=== PATIENT | male | born 1950 | race Caucasian/White ===

== ENCOUNTER 2017-05-30 19:27 | Inpatient (IN) | payer OTHER, BC ==
[~2017-05-30] VITALS: Ht 182.9 cm; Wt 160.1 kg
--- NOTE | ~2017-05-30 | D ---
[facility] [place] [address] DISCHARGE SUMMARY Name: LIZZ MARCELINO Room #: 424-P [facility] IN M.R.#: [id number] Admission: 05/30/17 Attend Phys: Jeannette Brooks MD Discharge: 05/31/17 Date of : 48 Report #: [id number] THIS REPORT FOR: //name// CC: Jeannette LIN DATE OF SERVICE: 05/31/2017 HISTORY OF PRESENT ILLNESS: The patient is a 67-year-old man with history of nephrolithiasis, who came to the hospital with right flank pain. Please refer to admission H and P for details. In brief, the patient was found to have right ureteral stone. HOSPITALIZATION COURSE: The patient was hospitalized. CT of the abdomen revealed a 5-mm calculus in the right proximal ureter. The patient was seen by urologist. Different options were given. The patient has passed kidney stones before. Therefore, the patient was recommended to take fluids, continue Flomax, and have outpatient followup. Currently, the patient is asymptomatic. His pain has resolved. Per urology's recommendation, the patient will be discharged home on outpatient followup. Incidentally, CT scan of the abdomen revealed findings suggestive of cirrhosis. Liver function tests are mildly elevated. The patient denies prior history of liver disease, and he does not drink alcohol. Given the patient's obesity, nonalcoholic steatohepatitis is a consideration. The patient was informed about findings, I strongly advised to discuss this with primary care physician as soon as possible. DISCHARGE MEDICATIONS: Please refer to medication reconciliation list. In brief, the patient is started on Flomax, in addition to his regular medications. DISCHARGE DIAGNOSES: 1. Right ureteral stone, details as above. Outpatient followup. No procedure performed. 2. Liver cirrhosis, suspected based on CT scan of the abdomen. Etiology is unclear. Outpatient followup. The patient is informed about findings. 3. History of deep venous thrombosis and pulmonary embolism, on chronic anticoagulation. Therapeutic INR. 4. Diabetes mellitus type 2. 5. Dyslipidemia. 6. Morbid obesity. DISPOSITION: The patient is discharged home. FOLLOWUP PLAN: [facility] [address] [place] [address] DISCHARGE SUMMARY Name: LIZZ MARCELINO Room #: 424-P [facility] IN ..#: [id number] Admission: 05/30/17 Attend Phys: Jeannette Brooks MD Discharge: 05/31/17 Date of : 48 Report #: [id number] 1. Follow up with urologist in about 2 weeks as planned. 2. Follow up with the primary care physician in 7-10 days. <ELECTRONICALLY SIGNED> By: Jeannette Brooks MD 05/31/17 1604 [id number] Jeannette Brooks MD /nt
[2017-05-30 19:32] VITALS: BP 201/75
[2017-05-30 20:19] LABS: URINE BILIRUBIN NEGATIVE (Negative); URINE BLOOD 2+ (Negative); URINE CLARITY CLEAR; URINE COLOR YELLOW; URINE GLUCOSE-RANDOM* TRACE (Negative); URINE KETONES NEGATIVE (Negative); URINE LEUKOCYTES NEGATIVE (Negative); URINE NITRITE NEGATIVE (Negative); URINE PROTEIN (DIPSTICK) NEGATIVE (Negative); URINE SPECIFIC GRAVITY >= 1.030 (1.005-1.035)
[2017-05-30 20:37] LABS: HEMATOCRIT 35.8 % (42.0-52.0); HEMOGLOBIN 12.3 gm/dL (14.0-18.0); MCH 34.2 pg (26.0-34.0); MCHC 34.4 g/dL (28.0-37.0); MCV 99.4 fL (80.0-100.0); PLATELET COUNT 124 thou/uL (150-400); WBC 6.2 thou/uL (4.0-11.0)
[2017-05-30 20:45] LABS: URIC ACID CRYSTALS >10 Many /LPF (None Seen)
[2017-05-30 20:46] LABS: CALCIUM 8.8 mg/dL (8.5-10.1); CREATININE 1.5 mg/dL (0.7-1.3); POTASSIUM 3.4 mmol/L (3.5-5.1)
[2017-05-30 20:46] LABS: BACTERIA None Seen /HPF (None Seen); CASTS None Seen /LPF (None Seen); SQUAMOUS None Seen /LPF (0-3); URINE RBC 3-10 Few /HPF (0-2); URINE WBC None Seen /HPF (0-5)
[2017-05-30 21:46] VITALS: BP 145/66
[2017-05-30] MEDS ORDERED: METFORMIN HCL500 MG PO (22:07)
[2017-05-30] MEDS ORDERED: COUMADIN 5 MG TA5 M1 PO (22:07)
[2017-05-30] MEDS ORDERED: SIMVASTATIN40 MG PO (22:07)
[2017-05-30] MEDS ORDERED: HYDROCHLOROTH12.5 M1 PO (22:08)
[2017-05-30 22:34] VITALS: BP 140/62
[2017-05-30 22:35] VITALS: BP 164/78
[2017-05-31 01:07] LABS: INR 2.7; PROTIME 27.4 Seconds (9.3-11.4)
[2017-05-31 04:30] VITALS: BP 142/79
[2017-05-31 06:15] LABS: ALBUMIN 2.5 g/dL (3.4-5.0); DIRECT BILIRUBIN 0.3 mg/dL (<0.1-0.3); TOTAL BILIRUBIN 1.2 mg/dL (<0.1-1.0)
[2017-05-31 08:46] VITALS: BP 134/62
[2017-05-31] MEDS ORDERED: OXYCODONE HCL 55 MG PO (10:26)
[2017-05-31] MEDS ORDERED: FLOMAX0.4 MG PO (10:26)
[2017-05-31 10:52] VITALS: BP 134/62
[2017-05-31 17:12] LABS: HAV IgM AB (ANTI-HAV IgM) Negative (Negative); HEPATITIS B SURFACE AG Negative (Negative); HEPATITIS C VIRUS AB 0.1 (0.0-0.9)
== END 2017-05-31 13:16 | disposition home or self-care (01) | DRG 693 ==
LOC: ER 19:27 → 4E 20:44 → EROBS 20:44 → 4E 22:35 → ENTRNSPT 05-31 13:06 → EDTRNSPTSTS 05-31 13:09 → 4E 05-31 13:16
PROVIDERS: Emergency Medicine; Nurse Practitioner Acute Care
DX: N20.1 Calculus of ureter (principal); E43 Unspecified severe protein-calorie malnutrition; N17.9 Acute kidney failure, unspecified; Z68.42 Body mass index [BMI] 45.0-49.9, adult; K74.60 Unspecified cirrhosis of liver; E78.5 Hyperlipidemia, unspecified; E66.01 Morbid (severe) obesity due to excess calories; Z96.652 Presence of left artificial knee joint; E87.6 Hypokalemia; N18.3 Chronic kidney disease, stage 3 (moderate); E11.22 Type 2 diabetes mellitus with diabetic chronic kidney disease; I12.9 Hypertensive chronic kidney disease with stage 1 through stage 4 chronic kidney disease, or unspecified chronic kidney disease; G47.33 Obstructive sleep apnea (adult) (pediatric); Z90.49 Acquired absence of other specified parts of digestive tract; Z79.01 Long term (current) use of anticoagulants; Z86.718 Personal history of other venous thrombosis and embolism; Z86.711 Personal history of pulmonary embolism; Z82.49 Family history of ischemic heart disease and other diseases of the circulatory system; Z83.3 Family history of diabetes mellitus; Z82.3 Family history of stroke; Z79.4 Long term (current) use of insulin
CPT/HCPCS: 10183

== ENCOUNTER 2017-06-01 10:27 | Inpatient (IN) | payer OTHER, BC ==
[~2017-06-01] VITALS: Ht 182.9 cm; Wt 158.8 kg
--- NOTE | ~2017-06-01 | H ---
[facility] [place] [address] HISTORY AND PHYSICAL Name: LIZZ MARCELINO Room #: 420-P [facility] IN M.R.#: [id number] Admission: 06/01/17 Attend Phys: Ronnell August MD Discharge: 06/02/17 Date of : 48 Report #: [id number] THIS REPORT FOR: //name// CC: Ronnell LIN CHIEF COMPLAINT: Coming in for the complaints of flank pain. HISTORY OF PRESENT ILLNESS: The patient was in his usual state of health until a few days ago with complaints of flank pain, was recently discharged from [facility] yesterday after elective procedural stent placement for right ureteral stone with hydronephrosis secondary to bleeding on anticoagulation. The patient is unable to tolerate the pain with significant nausea and flank pain. Came into the ER for further evaluation. After further discussion with Urology, got readmitted. See the most recent HPI and discharge summary for further details. The patient denies any complaints of fever or chills. The patient denies any nausea or vomiting, except for severe pain. The patient denies any diarrhea or abdominal pain other than flank that radiates to the groin. The patient has mild hematuria. The patient denies any dysuria. The patient denies any lower extremity edema. REVIEW OF SYSTEMS: Negative other than HPI. PAST MEDICAL HISTORY: See EMR for further details. MEDICATIONS: See EMR for further details. PAST SURGICAL HISTORY: See EMR for further details. PHYSICAL EXAMINATION: PELVIC: Right flank tenderness. HEART: S1 and S2. NEUROLOGIC: No focal neurological deficits. LUNGS: Air entry positive bilaterally on respiratory exam. ____. The patient morbidly obese. LABORATORIES: Creatinine up to 1.6. Normal electrolytes. Renal function appears to be baseline from chronic diabetic nephropathy. Creatinine of 1.5. No prior labs available prior to 05/30, but stable from last discharge. H and H, mild drop from 12.3/35.8 to 10.8/30.8. See EMR for further details. INR of 0.6. We will trial vitamin K in the morning after repeat INR if elected for procedure. CT of the abdomen: Prior CT shows 5 mm stone in the right proximal ureter with moderate right obstructive uropathy. Nonobstructive stones also noted. No left-sided urinary calculi noted. Liver suggestive of cirrhosis with multiple portal systemic venous collaterals. There is mild stranding in the mesenteric fat with numerous small mesenteric lymph nodes, although the patient does not have any abdominal symptoms currently. [facility] [address] [place] [address] HISTORY AND PHYSICAL Name: LIZZ MARCELINO Room #: 420-P [facility] IN [facility].#: [id number] Admission: 06/01/17 Attend Phys: Ronnell August MD Discharge: 06/02/17 Date of : 48 Report #: [id number] ASSESSMENT: Right ureteral stone obstructive uropathy. Urology consult. IV fluids. After Urology's evaluation, he is scheduled for procedure in the morning. We will do vitamin K as it would take a long time to reach therapeutic after vitamin K. Empiric antibiotics if patient spikes fever. Continue home medication of Flomax, simvastatin and pain control with OxyIR. The patient preferred tramadol over hydrocodone. Morphine for breakthrough pain. DVT prophylaxis not necessary nor GI prophylaxis needed. <ELECTRONICALLY SIGNED> By: Ronnell August MD 06/20/17 0837 [id number] Ronnell August MD /nt
--- NOTE | ~2017-06-01 | O ---
[facility] [place] [address] OPERATIVE REPORT Name: LIZZ MARCELINO Room #: 420-P [facility] IN M.R.#: [id number] Admission: 06/01/17 Attend Phys: Ronnell August MD Discharge: Date of : 48 Report #: [id number] THIS REPORT FOR: //name// CC: Ronnell LIN DATE OF SERVICE: 06/02/2017 PREOPERATIVE DIAGNOSIS: Right hydronephrosis and right ureteral stone. POSTOPERATIVE DIAGNOSIS: Right hydronephrosis and right ureteral stone. PROCEDURE PERFORMED: 1. Cystoscopy. 2. Right retrograde pyelogram. 3. Right ureteral stent placement. ESTIMATED BLOOD LOSS: Zero. COMPLICATIONS: None. ANESTHESIA: General. SPECIMENS: None. FINDINGS: There is a midureteral stone present on the block sealer film and a [id number] hydronephrosis. A 6-Nigerian x 26 cm stent was placed. INDICATIONS FOR PROCEDURE: The patient is a 67-year-old gentleman with morbid obesity and a right ureteral stone. He has failed a passage at home and has returned to the ER in pain. He has elected to undergo the above-named procedure. Due to his elevation in INR, I could not consider elective stone management at this time and understands he will have to have another procedure after the stent is placed. DESCRIPTION OF PROCEDURE: The patient was taken back to the operating room on 06/02/2017, after informed consent was obtained, all risks, benefits and alternatives were explained, a signed consent release on the chart. He was placed in a dorsal lithotomy position and prepped and draped in sterile fashion. Using a rigid 21-Nigerian cystoscope, cystoscopy was performed. The bladder was inspected in its entirety and there were no abnormalities. The right ureteral orifice was cannulated with a 5 Nigerian open-ended ureteral access catheter and a retrograde pyelogram was performed, which showed a mid right ureteral stone on the block sealer film and there was proximal hydroureteronephrosis with no extravasation. A wire was placed up to the kidney and then a 6-Nigerian x 26 cm stent was placed over the wire. Curl was seen in the renal pelvis on [address] [address] OPERATIVE REPORT Name: LIZZ MARCELINO Room #: 420-P [facility] IN M.R.#: [id number] Admission: 06/01/17 Attend Phys: Ronnell August MD Discharge: Date of : 48 Report #: [id number] fluoroscopy and under direct vision in the bladder. The bladder was drained and he is awoken from anesthesia with no complication and taken to recovery room in stable condition. DISPOSITION: The patient will return to the floor and be discharged after he is tolerating a diet and pain. By: [id number] Heath Soliz MD /nt
[~2017-06-01 10:27] MED LIST: COUMADIN 5 MG TA5 M1 PO; FLOMAX0.4 MG PO; HYDROCHLOROTH12.5 M1 PO; METFORMIN HCL500 MG PO; OXYCODONE HCL 55 MG PO; SIMVASTATIN40 MG PO
[2017-06-01 10:33] VITALS: BP 142/61
[2017-06-01 11:04] LABS: HEMATOCRIT 34.1 % (42.0-52.0); HEMOGLOBIN 11.9 gm/dL (14.0-18.0); MCH 34.7 pg (26.0-34.0); MCHC 34.8 g/dL (28.0-37.0); MCV 99.9 fL (80.0-100.0); RBC 3.42 mil/uL (4.50-6.00); WBC 6.6 thou/uL (4.0-11.0)
[2017-06-01 11:06] LABS: URINE BILIRUBIN NEGATIVE (Negative); URINE BLOOD 3+ (Negative); URINE CLARITY CLEAR; URINE COLOR YELLOW; URINE GLUCOSE-RANDOM* NEGATIVE (Negative); URINE KETONES NEGATIVE (Negative); URINE LEUKOCYTES-REFLEX NEGATIVE (Negative); URINE NITRITE-REFLEX NEGATIVE (Negative); URINE PROTEIN (DIPSTICK) TRACE (Negative); URINE SPECIFIC GRAVITY 1.025 (1.005-1.035)
[2017-06-01 11:17] LABS: CASTS None Seen /LPF (None Seen); SQUAMOUS 0-3 Few /LPF (0-3); URINE WBC-REFLEX 6-15 Few /HPF (0-5)
[2017-06-01 11:18] LABS: BACTERIA-REFLEX None Seen /HPF (None Seen); URIC ACID CRYSTALS >10 Many /LPF (None Seen); URINE RBC 3-10 Few /HPF (0-2)
[2017-06-01 11:22] LABS: CALCIUM 8.5 mg/dL (8.5-10.1); CREATININE 1.6 mg/dL (0.7-1.3)
[2017-06-01 12:56] VITALS: BP 156/73
[2017-06-01 14:10] VITALS: BP 155/68
[2017-06-01 14:40] VITALS: BP 162/78
[2017-06-01 19:35] VITALS: BP 137/69
[2017-06-02] VITALS (10 sets, daily range): BP systolic 125–154; BP diastolic 64–77
[2017-06-02 04:36] LABS: HEMATOCRIT 30.8 % (42.0-52.0); HEMOGLOBIN 10.8 gm/dL (14.0-18.0); MCH 34.7 pg (26.0-34.0); MCHC 35.1 g/dL (28.0-37.0); RBC 3.12 mil/uL (4.50-6.00); RDW 16.3 % (10.5-14.5); WBC 6.8 thou/uL (4.0-11.0)
[2017-06-02 04:40] LABS: INR 2.6; PROTIME 26.3 Seconds (9.3-11.4)
[2017-06-02 04:46] LABS: CALCIUM 7.9 mg/dL (8.5-10.1); CREATININE 1.6 mg/dL (0.7-1.3); POTASSIUM 3.7 mmol/L (3.5-5.1)
[2017-06-02] MEDS ORDERED: ACETAMINOPHN-T1 EACH PO (16:05)
== END 2017-06-02 18:20 | disposition home or self-care (01) | DRG 694 ==
LOC: ER 10:27 → EROBS 11:54 → 4E 14:09
PROVIDERS: Emergency Medicine; Hospitalist
DX: N20.2 Calculus of kidney with calculus of ureter (principal); Z68.42 Body mass index [BMI] 45.0-49.9, adult; I10 Essential (primary) hypertension; E11.9 Type 2 diabetes mellitus without complications; E78.5 Hyperlipidemia, unspecified; Z96.652 Presence of left artificial knee joint; Z86.718 Personal history of other venous thrombosis and embolism; Z86.711 Personal history of pulmonary embolism; Z90.49 Acquired absence of other specified parts of digestive tract; Z79.84 Long term (current) use of oral hypoglycemic drugs; Z79.01 Long term (current) use of anticoagulants; Z79.899 Other long term (current) drug therapy; Z82.49 Family history of ischemic heart disease and other diseases of the circulatory system; Z83.3 Family history of diabetes mellitus; Z82.3 Family history of stroke
CPT/HCPCS: 10084; 50101; 51620; 51767; 56674; 56815; 62110; 62900; 70005